=== PATIENT | female | born 1970 | race Caucasian/White ===

== ENCOUNTER 2019-07-11 01:16 | Emergency (ER) | payer OTHER ==
[~2019-07-11] VITALS: Ht 162.6 cm; Wt 61.2 kg
[~2019-07-11 01:16] MED LIST: AMITRIPTYLINE H50 M3 PO; DOXYCYCLINE 10100 MG PO; ENBREL; FLEXERIL PO; GABAPENTIN100 MG PO; GLUCOPHAGE XR500 MG PO; HIBICLENS120 ML TP; HYDROCODONE-APA1 TA1 PO; MUPIROCIN22 GM TOP; NAPROSYN500 MG PO; SYNTHROID
[2019-07-11] MEDS ORDERED: TRAZODONE 150150 M1 PO (01:31)
[2019-07-11] MEDS ORDERED: RAYOS5 MG PO (01:32)
[2019-07-11] MEDS ORDERED: AMITRIPTYLINE100 MG PO (01:32)
[2019-07-11] MEDS ORDERED: CYMBALTA20 MG PO (01:34)
[2019-07-11 02:18] LABS: URINE BILIRUBIN NEGATIVE (Negative); URINE BLOOD NEGATIVE (Negative); URINE CLARITY CLEAR; URINE COLOR STRAW; URINE GLUCOSE-RANDOM NEGATIVE (Negative); URINE KETONES NEGATIVE (Negative); URINE LEUKOCYTES-REFLEX NEGATIVE (Negative); URINE NITRITE-REFLEX NEGATIVE (Negative); URINE PROTEIN NEGATIVE (Negative); URINE SPECIFIC GRAVITY <= 1.005 (1.005-1.030); URINE UROBILINOGEN 0.2 E.U./dl (0.2-1.0)
[2019-07-11 02:19] LABS: HEMATOCRIT 32.2 % (37.0-47.0); HEMOGLOBIN 10.5 gm/dL (12.0-15.0); MCH 25.5 pg (26.0-34.0); MCHC 32.7 g/dL (28.0-37.0); MCV 78.1 fL (80.0-100.0); MPV 7.6 fl. (7.2-11.1); RBC 4.12 mil/uL (4.20-5.00); WBC 7.1 thou/uL (4.0-11.0)
[2019-07-11] MEDS ORDERED: TYLENOL WITH CO1 TA1 PO (02:24)
[2019-07-11] MEDS ORDERED: TORADOL 10 MG T10 MG PO (02:24)
[2019-07-11 02:25] LABS: AMP/METHAMP Negative (Negative); BARBITURATES Negative (Negative); BENZODIAZEPINES Negative (Negative); COCAINE Negative (Negative); METHADONE Negative (Negative); OPIATES Negative (Negative); PCP Negative (Negative); THC POSITIVE (Negative)
[2019-07-11 02:28] LABS: CALCIUM 8.4 mg/dL (8.5-10.1); CREATININE 1.1 mg/dL (0.6-1.3)
[2019-07-11 02:32] LABS: ALBUMIN 3.4 g/dL (3.4-5.0)
[2019-07-11 02:44] LABS: TOTAL BILIRUBIN 0.2 mg/dL (<0.1-1.0); TOTAL PROTEIN 7.5 g/dL (6.4-8.2)
[2019-07-11 02:50] VITALS: BP 127/67
== END 2019-07-11 02:53 | disposition home or self-care (01) ==
LOC: M.ERS 01:16
PROVIDERS: Personal Emergency Response Attendant
DX: M25.561 Pain in right knee (principal); L40.50 Arthropathic psoriasis, unspecified; Z88.0 Allergy status to penicillin; Z86.14 Personal history of Methicillin resistant Staphylococcus aureus infection; Z79.899 Other long term (current) drug therapy